=== PATIENT | female | born 1995 | race Caucasian/White ===

== ENCOUNTER → 2016-10-14 | Outpatient (CLI) | payer OTHER ==
[~2016-10-14] MED LIST: PRENTAB26 PO
== END | disposition home or self-care (01) ==
LOC: C.LABSPEC 14:46
PROVIDERS: ATTEND Obstetrics & Gynecology
DX: Z34.03 Encounter for supervision of normal first pregnancy, third trimester (principal)

== ENCOUNTER 2016-10-31 04:34 | Inpatient (IN) | payer BC, OTHER ==
[~2016-10-31] VITALS: Ht 160 cm; Wt 59.5 kg
[2016-10-31] MEDS ORDERED: LACTATED RINGER'S 1000ML 1,000 ML IV PRN (05:10)
[2016-10-31] MEDS ORDERED: FENTANYL 2MCG/ML ROPIV 1.25MG/ML 100ML BAG EPI ONE (05:12)
[2016-10-31] MEDS ORDERED: EpHEDrine SULFATE INJ 50 MG/ML AMP ONE (05:12)
[2016-10-31] MEDS ORDERED: BUPIVACAINE 0.25% 30 ML VIAL ONE (05:12)
[2016-10-31] MEDS ORDERED: FENTANYL CITRATE INJ 50 MCG/1 ML 2 ML VIAL ONE (05:13)
[2016-10-31 05:42] LABS: HEMATOCRIT 34.5 % (37-47); MEAN CELL VOLUME 87.6 fL (80-100); MEAN CORPUSCULAR HEMOGLOBIN 31.2 pg (25-34); MEAN CORPUSCULAR HGB CONC 35.7 g/dl (32-36); MEAN PLATELET VOLUME 9.8 fL (7.4-10.4); PLATELET COUNT 236 K/uL (130-400); RED BLOOD COUNT 3.94 M/uL (4.2-5.4); WHITE BLOOD COUNT 8.82 K/uL (4.8-10.8)
[2016-10-31] MEDS ORDERED: OXYTOCIN 30 UNITS/500ML NSS IV ONE (05:42)
[2016-10-31] MEDS ORDERED: PRENTAB26 PO (06:03)
[2016-10-31 06:05] VITALS: Ht 160 cm; Wt 59.5 kg
[2016-10-31] MEDS ORDERED: NALOXONE HCL INJ 1 MG in SODIUM CHLORIDE 0.9% 1000ML 1,000 ML IV PRN (06:06)
[2016-10-31] MEDS ORDERED: LACTATED RINGER'S 1000ML 500 ML IV PRN (06:06)
[2016-10-31] MEDS ORDERED: EpHEDrine SULFATE INJ 50 MG/ML AMP IV PRN (06:15)
[2016-10-31] MEDS ORDERED: NALOXONE HCL INJ 0.4 MG/1 ML VIAL/CARP IV PRN (06:15)
[2016-10-31] MEDS ORDERED: DiphenhydrAMINE HCL 50 MG/ML VIAL IV PRN (06:15)
[2016-10-31] MEDS ORDERED: ONDANSETRON INJ 2 MG/ML 2 ML VIAL IV PRN (06:15)
[2016-10-31] MEDS ORDERED: NALBUPHINE HCL INJ 10 MG/ML AMP IV PRN (06:15)
[2016-10-31] MEDS ORDERED: FENTANYL 2MCG/ML ROPIV 1.25MG/ML 100ML BAG EPI PRN (06:15)
[2016-10-31] MEDS ORDERED: PROMETHAZINE HCL INJ 25 MG in SODIUM CHLORIDE 0.9% 50ML 50 ML IV PRN (06:15)
[2016-10-31] MEDS: LACTATED RINGER'S 1000ML 1,000 ML IV SCH ×2 (06:30→06:52)
[2016-10-31] MEDS ORDERED: ACETAMINOPHEN/CODEINE 300/30MG TAB PO PRN ×2 (08:00)
[2016-10-31] MEDS ORDERED: LANOLIN OINT EXT PRN ×2 (08:00)
[2016-10-31] MEDS ORDERED: BENZOCAINE 20% AER SPR 82.5 GM CAN EXT PRN (08:00)
[2016-10-31] MEDS ORDERED: ACETAMINOPHEN 325 MG TAB PO PRN (08:00)
[2016-10-31] MEDS ORDERED: HYDROCORTISONE ACETATE 25 MG SUPP PR PRN (08:00)
[2016-10-31] MEDS ORDERED: SUPERCREAM 0.870 % 15GM JAR EXT PRN (08:00)
[2016-10-31] MEDS ORDERED: OXYTOCIN 30 UNITS/500ML NSS IV PRN (08:00)
--- NOTE | 2016-10-31 08:20 | DELIVERY SUMMARY ---
DATE OF OPERATION: 10/31/2016 DATE OF DELIVERY: 10/31/2016. DELIVERING SURGEON: Dr. Canela. PRE-DELIVERY DIAGNOSES: 1. 21-year-old G1,P0 at 40 weeks 2 days. 2. Spontaneous labor. POST-DELIVERY DIAGNOSES: 1. 21-year-old G1,P0 at 40 weeks 2 days. 2. Spontaneous labor. PROCEDURE: Spontaneous vaginal delivery with repair of 2nd degree perineal laceration. ESTIMATED BLOOD LOSS: 200 mL. FINDINGS: Viable female . Apgars 8 and 9. Weight pending. ANESTHESIA: Spinal. COMPLICATIONS: None. DISPOSITION: Stable and good. DESCRIPTION OF PROCEDURE: The patient received spinal anesthesia due to severe discomfort in anticipation of precipitous delivery. She progressed to complete and spontaneously vaginally delivered a viable female in the left occiput anterior anterior position. The head delivered. Nuchal cord x1 was noted and easily reduced. The anterior shoulder followed by the posterior shoulder were delivered followed by the body. The baby was placed on mother's abdomen where she was warmed and dried and spontaneous cry was heard. The cord was doubly clamped and cut. A segment was retained for cord gasses. Cord blood was obtained. The placenta then delivered spontaneous intact with a 3-vessel cord. Pitocin was given. The uterus and vagina were cleared of all clots and debris. The uterus began to clamp down. The cervix, vagina and perineum were inspected and a 2nd degree perineal laceration was noted and repaired in standard fashion with 3-0 Vicryl. Excellent hemostasis was observed. The patient and baby tolerated the delivery well and are in stable and good condition. All instrument, sponge and needle counts were correct x2 at the conclusion of the delivery. I attest to the content of the Intraoperative Record and any orders documented therein. Any exceptio ns are noted below.
[2016-10-31] MEDS: DOCUSATE SODIUM 100 MG CAP PO SCH ×2 (09:58→21:01)
[2016-10-31] MEDS: PRENATAL VITAMIN TAB PO SCH (09:58)
[2016-10-31] MEDS: IBUPROFEN 600 MG TAB PO PRN ×2 (09:58→16:23)
[2016-10-31 12:45] VITALS: BP 128/71; PULSE 64
[2016-10-31 16:00] VITALS: BP 125/76; PULSE 47; TEMP 37; O2SAT 99
[2016-10-31 20:00] VITALS: BP 115/71; PULSE 53; TEMP 36.8
[2016-11-01 00:05] VITALS: BP 107/66; PULSE 48; TEMP 36.8
[2016-11-01 04:35] VITALS: BP 111/71; PULSE 70; TEMP 36.7
[2016-11-01 06:59] LABS: HEMATOCRIT 32.2 % (37-47)
--- NOTE | 2016-11-01 07:12 | Progress Note ---
Subjective Nov 01, 2016. Subjective conversation w/ patient, physical exam Ambulation: ambulating normally Voiding: no voiding problems Passing Gas: Yes Diet Tolerance: Regular Diet Lochia: Small Feeding Type: Breast Feeding Pain: No pain reported this morning Review of Systems Constitutional: No chills, No fever Respiratory: No cough, No shortness of breath Cardiac: No chest pain Breast: No breast pain Abdomen: No nausea, No pain, No vomiting Female : No dysuria Objective Vital Signs Date Time Temp Pulse Resp B/P Pulse Ox O2 Delivery O2 Flow Rate FiO2 11/01/16 04:35 36.7 70 18 111/71 Room Air 11/01/16 00:05 36.8 48 18 107/66 Room Air 11/01/16 00:05 Room Air 10/31/16 20:00 36.8 53 18 115/71 Room Air 10/31/16 16:00 37.0 47 16 125/76 99 Room Air 10/31/16 16:00 Room Air 10/31/16 12:45 64 18 128/71 Room Air 10/31/16 11:58 Room Air Physical Exam General Appearance: WELL-APPEARING, WD/WN, NO APPARENT DISTRESS Respiratory/Chest: lungs clear, normal breath sounds Cardiovascular: regular rate, rhythm, no gallop, no murmur Abdomen: non tender, soft Fundus: Firm, Relation to Umbilicus (1cm below) Extremities: no calf tenderness Laboratory Results Last 24 Hours Test 11/01/16 06:00 Hemoglobin 11.3 g/dL Hematocrit 32.2 % Medications Current Inpatient Medications Medications (Trade) Dose Ordered Sig/Sara Route Start Time Stop Time Status Last Admin Dose Admin Lactated Ringer's 1,000 ml @ 125 mls/hr Q8H IV 10/31/16 05:10 11/02/16 05:09 10/31/16 06:52 125 MLS/HR Lactated Ringer's (Lr 1000ml) 1,000 ml @ 999 mls/hr Q1H1M PRN IV 10/31/16 05:10 11/30/16 05:09 10/31/16 05:10 999 MLS/HR Oxytocin (Pitocin IV) 30 units UD PRN IV 10/31/16 08:00 11/30/16 07:59 Benzocaine (Dermoplast Aero Spr) 1 appln PRN PRN EXT 10/31/16 08:00 11/30/16 07:59 Cocaine HCl (Supercream 0.870% Cr) BID PRN EXT 10/31/16 08:00 11/14/16 07:59 Hydrocortisone Acetate (Anusol Hc Supp) 25 mg BID PRN AR 10/31/16 08:00 11/30/16 07:59 Lanolin (Lanolin Oint) PRN PRN EXT 10/31/16 08:00 11/30/16 07:59 Prenat Multivit/ [place]/Iron/Folic Ac ( Vitamin Tab) 1 tab DAILY PO 10/31/16 08:00 11/30/16 07:59 10/31/16 09:58 1 TAB Ibuprofen (Motrin Tab) 600 mg Q4H PRN PO 10/31/16 08:00 11/30/16 07:59 10/31/16 16:23 600 MG Acetaminophen (Tylenol Tab) 650 mg Q6H PRN PO 10/31/16 08:00 11/30/16 07:59 Acetaminophen/ Codeine Phosphate (Tylenol w/ Codeine #3 Tab) 1 tab Q4H PRN PO 10/31/16 08:00 11/30/16 07:59 Acetaminophen/ Codeine Phosphate (Tylenol w/ Codeine #3 Tab) 2 tab Q4H PRN PO 10/31/16 08:00 11/30/16 07:59 Bisacodyl (Dulcolax Tab) 5 mg 20 PO 11/01/16 20:00 11/01/16 20:01 Bisacodyl (Dulcolax Supp) 10 mg DAILY PRN AR 11/02/16 07:00 Docusate Sodium (coLACE CAP) 100 mg BID PO 10/31/16 08:00 11/30/16 07:59 10/31/16 21:01 100 MG Assessment and Plan Post- Day#: 1 Continue Routine Care: - Vital Signs reviewed and WNL (temp max 36.7) - Blood Type: A+, GBS Negative, Rubella Immune - Patient doing well clinically - Encourage Ambulation today - Tolerating PO Diet - Pain well controlled - Discharge today
[2016-11-01 07:56] VITALS: BP 111/71; PULSE 51; TEMP 36.7
[2016-11-01] MEDS: IBUPROFEN 600 MG TAB PO PRN ×2 (09:09→20:04)
[2016-11-01] MEDS: PRENATAL VITAMIN TAB PO SCH (09:10)
[2016-11-01] MEDS: DOCUSATE SODIUM 100 MG CAP PO SCH ×2 (09:10→20:04)
[2016-11-01 16:30] VITALS: BP 105/65; PULSE 56; TEMP 36.6
[2016-11-01 19:15] VITALS: BP 106/67; PULSE 61; TEMP 36.7
[2016-11-01] MEDS ORDERED: BISACODYL 5 MG TABEC PO SCH (20:00)
[2016-11-01 23:40] VITALS: BP 112/73; PULSE 57; TEMP 36.8
[2016-11-02] MEDS: IBUPROFEN 600 MG TAB PO PRN (06:14)
[2016-11-02] MEDS ORDERED: BISACODYL 10 MG SUPP PR PRN (07:00)
[2016-11-02 07:30] VITALS: BP 99/64; PULSE 65; TEMP 36.4; O2SAT 99
[2016-11-02 07:50] LABS: HEMATOCRIT 33.2 % (37-47); MEAN CELL VOLUME 88.5 fL (80-100); MEAN CORPUSCULAR HEMOGLOBIN 30.7 pg (25-34); MEAN CORPUSCULAR HGB CONC 34.6 g/dl (32-36); MEAN PLATELET VOLUME 9.5 fL (7.4-10.4); PLATELET COUNT 192 K/uL (130-400); RED BLOOD COUNT 3.75 M/uL (4.2-5.4); WHITE BLOOD COUNT 9.42 K/uL (4.8-10.8)
[2016-11-02] MEDS: PRENATAL VITAMIN TAB PO SCH (08:09)
[2016-11-02] MEDS: DOCUSATE SODIUM 100 MG CAP PO SCH (08:09)
--- NOTE | 2016-11-02 09:11 | Progress Note ---
Subjective Nov 02, 2016. Subjective conversation w/ patient, chart review, lab review Ambulation: ambulating normally Voiding: no voiding problems Passing Gas: Yes Diet Tolerance: Regular Diet Lochia: Small Feeding Type: Breast Feeding Objective Vital Signs Date Time Temp Pulse Resp B/P Pulse Ox O2 Delivery O2 Flow Rate FiO2 11/01/16 23:40 Room Air 11/01/16 23:40 36.8 57 18 112/73 Room Air 11/01/16 19:15 36.7 61 16 106/67 Room Air 11/01/16 16:33 Room Air 11/01/16 16:30 36.6 56 18 105/65 Room Air Physical Exam General Appearance: WELL-APPEARING Abdomen: non tender Fundus: Firm Extremities: no calf tenderness Laboratory Results Last 24 Hours Test 11/02/16 07:25 White Blood Count 9.42 K/uL Red Blood Count 3.75 M/uL Hemoglobin 11.5 g/dL Hematocrit 33.2 % Mean Corpuscular Volume 88.5 fL Mean Corpuscular Hemoglobin 30.7 pg Mean Corpuscular Hemoglobin Concent 34.6 g/dl RDW Standard Deviation 42.2 fL RDW Coefficient of Variation 13.1 % Platelet Count 192 K/uL Mean Platelet Volume 9.5 fL Assessment and Plan Post- Day#: 2 Continue Routine Care: home
--- NOTE | 2016-11-02 09:12 | Discharge Instructions ---
Discharge Instructions Admission Reason for Admission: Spontaneous Onset Of Labor Discharge Discharge Diagnosis / Problem: Discharge Goals Goal(s): Routine recovery after delivery Activity Recommendations Activity Limitations: per Instructions/Follow-up section . Instructions / Follow-Up Instructions / Follow-Up ACTIVITY RECOMMENDATIONS: * Gradual return to full activity over the next 2-3 weeks. * No lifting - nothing heavier than baby over the next 2-3 weeks. * Do not engage in vigorous exercise, sexual activity or sports until cleared by your physician. * Do not drive or operate any motorized equipment until cleared by your physician. * You may shower/bathe daily. MEDICATIONS: For discomfort or pain, you may use Acetaminophen (Tylenol), Ibuprofen (Advil), or Naproxen (Aleve) following the package directions. For constipation you may use Colace following the package directions. BREAST CARE: If you are not breast feeding: * Wear a supportive bra 24 hours a day for one to two weeks. * Avoid stimulating your breasts and nipples as much as possible during the first few weeks after delivery. * When taking a shower, have the warm water hit your back, not breasts. * When your breasts feel full, apply ice packs. Usually three to four times a day helps ease the discomfort. * Take a mild pain medication (Tylenol / Motrin) when you are uncomfortable. If breast feeding: * Use breast milk to lubricate nipples. Lansinoh cream may be used for sore nipples. You do not need to remove cream prior to breast feeding. If using a different brand of cream, check the label for directions regarding removal of cream prior to nursing. * Wear a supportive bra. * If having problems with breasts or breast feeding, call a otm consultant or your health care provider. EPISIOTOMY CARE: After delivery, if you have an episiotomy (stitches), the following steps will ease discomfort and aid healing. * For the first 24 hours after delivery, place ice packs next to your episiotomy to help reduce swelling. * After the first 24 hour-period, sitz baths, either portable or in the tub, are suggested. A shower with a shower arm sprayed over the episiotomy may be comforting. * Jenifer care should be done after each voiding and bowel movement. Squirt warm water from a plastic bottle over the perineum (region of the body between the anus and urinary opening) and pat dry. * Use Dermoplast to ease discomfort. Shake container. [place] directly over the episiotomy. Place a Tucks on a clean sanitary pad next to your episiotomy. SPECIAL CARE INSTRUCTIONS: When you are discharged from the hospital, it is important for you to follow the instructions listed below: * During the first week at home, you should be able to care for yourself and your baby. In addition, the usual light household activities are encouraged. * Limit your activities to the way you feel. Do not try to clean the house or move furniture. Be sensible. * If you actively engage in sports and have done so up until the time of your delivery, you may resume these activities as soon as you feel able. This may take up to one month or even longer. Use good judgment. * Continue to take your vitamins for at least six weeks after the of your baby. * Your diet need not be limited unless you were on a special diet before your delivery. Breast-feeding mothers need around 2500 calories per day and at least 64-80 ounces of fluid per day (8 to 10 glasses). * You should eat foods from the four major food groups. Crash diets or fad diets are to be avoided. Eating lean meats, fresh fruits and vegetables, low-fat dairy products, high fiber foods and a regular exercise program, will help you get back to your pre- weight without putting your health at risk. * Constipation is sometimes a problem after delivery. Take a mild laxative as needed. If breast feeding, Milk of Magnesia is acceptable to use. You may use a suppository or Fleets enema if no episiotomy. * A daily shower or tub bath is suggested. Be sure to thoroughly and gently dry the perineum. * A bloody vaginal discharge will usually continue until around four weeks post . A small amount of bleeding may continue for as long as six weeks. Vaginal discharge changes from the bright red bleeding after delivery to pink then brownish and finally yellowish-pink before becoming white and disappearing. * Bleeding may increase with activity. Your first period may come in 4-8 weeks. If you are breast feeding, your period may be delayed even longer. * Pandora (sex) can begin whenever both you and your partner feel comfortable and do not have any form of genital infection. It is recommended that you wait at least six weeks for internal and external healing to occur. If you have questions, please talk to your health care practitioner. A condom should be used to prevent infection and . * Foreplay, gentle intercourse and lubrication is very important the first several times to prevent pain. A water-based lubricant such as K-Y jelly or Astroglide may be used. * If you have RH negative blood and your baby is RH positive, you will receive RHOGAM by injection prior to discharge. The nurse will give you a card to keep with you that has the date and place that you received RHOGAM after delivery. * During your care, you had a Rubella screen done to check for the presence of rubella antibodies in your blood. If your test was negative, you will receive a Rubella vaccine prior to discharge. This vaccine may cause a fever, soreness at the injection site and flu-like symptoms. If these symptoms persist, notify your health care practitioner. is not advised for one month after a Rubella vaccine. * Verbalizes understanding of car seat law as reviewed with patient nursing. * Car Seat hand-out given and reviewed with patient by nursing. * Shaken baby information reviewed with patient by nursing. Call you doctor if: * Heavy bleeding (saturating several pads an hour) or passing clots the size of your fist. * A fever >101 degrees F (38.3 degrees C) on two occasions four hours apart and /or chills. * Unusual pain in the pelvic or vaginal areas. * "Baby Blues" lasting longer than two weeks. If you have any questions or concerns, call your health care practitioner at . FOLLOW UP VISIT: * Please call the office at to schedule a 6 week examination. It is important you keep this appointment. It is important for you to make arrangements for either yearly or twice yearly check-ups thereafter. Current Hospital Diet Patient's current hospital diet: Regular OB Diet Discharge Diet Recommended Diet: Regular Diet Pending Studies Studies pending at discharge: no Medical Emergencies . Who to Call and When: Medical Emergencies: If at any time you feel your situation is an emergency, please call 911 immediately. . Non-Emergent Contact Non-Emergency issues call your: Primary Care Provider . . "Provider Documentation" section prepared by Calin Lal. VTE Core Measure Inpt VTE Proph given/why not?: Treatment not indicated
[2016-11-02 10:55] VITALS: BP_DIAS 64; PULSE 65; TEMP 36.4
== END 2016-11-02 10:55 | disposition home or self-care (01) | DRG 775 ==
LOC: C.OPB 04:34 → C.LD 04:35 → C.OPB 05:14 → C.OBG 11:42
PROVIDERS: ADMIT Obstetrics & Gynecology; ATTEND Obstetrics & Gynecology
PROC: 0KQM0ZZ Repair Perineum Muscle, Open Approach (ICD-10-PCS; principal; 2016-10-31)
PROC: 10E0XZZ Delivery of Products of Conception, External Approach (ICD-10-PCS; principal; 2016-10-31)
DX: O48.0 Post-term pregnancy (principal); Z37.0 Single live birth; O99.02 Anemia complicating childbirth; D64.9 Anemia, unspecified; O70.1 Second degree perineal laceration during delivery; O69.81X0 Labor and delivery complicated by cord around neck, without compression, not applicable or unspecified; Z3A.40 40 weeks gestation of pregnancy